=== PATIENT | male | born 1960 ===

== ENCOUNTER 2021-08-30 22:51 | Emergency (ER) | payer SELFPAY ==
[~2021-08-30] VITALS: Ht 178 cm; Wt 81.6 kg
[2021-08-30 22:53] VITALS: BP 0/0
[2021-08-30] MEDS ORDERED: SODIUM BICARB 8.4% 50 MEQ/50 ML (ABBOTT) SYR INJ ONE (22:53)
[2021-08-30] MEDS ORDERED: EPINEPHrine 0.1 MG/ML 10 ML (HOSPIRA) SYR IJ ONE (22:53)
[2021-08-30] MEDS ORDERED: ATROPINE INJECTION 1 MG/10 ML SYR (ABBOTT) INJ ONE (22:53)
[2021-08-30 23:43] LABS: AMPHETAMINE SCREEN, URINE NEGATIVE (NEGATIVE); BARBITURATE SCREEN URINE NEGATIVE (NEGATIVE); BENZODIAZEPINES SCREEN URINE NEGATIVE (NEGATIVE); CANNABINOID SCREEN, URINE NEGATIVE (NEGATIVE); COCAINE SCREEN URINE NEGATIVE (NEGATIVE); METHADONE STAT NEGATIVE (NEGATIVE); METHAMPHETAMINE SCREEN URINE S POSITIVE (NEGATIVE); OPIATE SCREEN URINE NEGATIVE (NEGATIVE); OXYCODONE STAT NEGATIVE (NEGATIVE); PROPOXYPHENE STAT NEGATIVE (NEGATIVE); TRICYCLIC ANTIDEPRESSANTS SCRE NEGATIVE (NEGATIVE)
--- NOTE | 2021-09-03 04:31 | ED CPR ---
HPI-CPR General Chief Complaint: Code Blue Stated Complaint: CODE BLUE Nursing Triage Note: UNRESPONSIVE MALE BROUGHT IN BY [facility] EMS CPR IN PROGRESS. ORALL INTUBATED 7.5, I/O IN PLACE. PT BECAME UNRESPONSIVE APPROX. 2212 EMS CALLED NO CPR BEGAN UNTIL APPROX. 2224. INITIAL RHYTHM PEA/ASYSTOLE. Source of Information: EMS, Other (LATER INFORMATION GIVEN BY GIRLFRIEND OF 6 MONTHS) History of Present Illness Date Seen by Provider: Aug 30, 2021 Time Seen by Provider: 22:53 Initial Comments PT ARRIVES VIA [facility] PT AND GIRLFRIEND HAVE "BEEN OVER HERE SHOPPING ALL DAY"--PT LIVES IN [place], [place] GIRLFRIEND STATES THEY STOPPED AT A [employer]VENIENCE STORE, SHE WENT IN, AND WHEN SHE CAME OUT, HE WAS SITTING IN VEHICLE AND C/O CHEST PAIN, WAS VERY DIAPHORETIC AND GASPING FOR AIR, AND THEN COLLAPSED AND 911 WAS CALLED THERE WAS NO BYSTANDER CPR. 911 WAS CALLED AT 2212 [facility] DEPUTY ARRIVED APPROXIMATELY 10-12 MINUTES AFTER 911 CALL AND CPR WAS INITIATED AT THAT TIME--APPROXIMATELY 5, PT WAS PULSELESS AND APENIC. PT WAS INTUBATED WITH 7.0 ET TUBE I/O ACCESS IN LEFT LOWER LEG EMS GAVE EPINEPHRINE X 4, AND BICARB X 1 MECHANICAL COMPRESSION DEVICE HAS BEEN PLACED BY EMS AND IS IS ATTACHED TO PATIENT AND WORKING PROPERLY EMS REPORT THAT PT HAS BEEN PULSELESS AND APNEIC AND IN ASYSTOLE THE ENTIRE TIME. GIRLFRIEND LATER REPORTS THAT PT NEVER WENT TO ANY DOCTOR SHE STATES HE HAS BEEN COMPLAINING OF CHEST PAIN AND SHORTNESS OF BREATH FOR THE LAST 3 WEEK SHE ALSO STATES THAT HE IS A HEAVY SMOKER, DRINKS HEAVILY AND USES METH AND OTHER DRUGS ON DAILY BASIS. Allergies and Home Medications Allergies Coded Allergies: No Known Drug Allergies (Unverified , 08/31/21) Patient Home Medication List Home Medication List Reviewed: No Review of Systems Review of Systems Constitutional: other (UNRESPONSIVE) Past [id number] Hx Patient Social History Tobacco Use?: Yes Tobacco type used: Cigarettes Substance use?: Yes Substance type: Methamphetamine, Marijuana Substance frequency: Daily Alcohol Use?: Yes Alcohol Frequency: Daily Physical Exam Vital Signs Vital Signs - First Documented 08/30/21 22:53 Temp 35.9 Pulse 0 Resp 0 B/P (MAP) 0/0 (0) Pulse Ox 0 O2 Delivery Ambu Bag Capillary Refill : NONE Height, Weight, BMI Height: '" Weight: lbs. oz. kg; 25.00 BMI Method: General Appearance: Severe Distress, Other (CPR IN PROGRESS, WITH COMPRESSIONS BEING DONE WITH A MECHANICAL DEVICE, AND PT IS BEING BAGGED VIA ET TUBE. PT IS UNRSPONSIVE, CYANOTIC, PULSELESS AND APNEIC. PT NOTED TO HAVE BRASS KNUCKLES WITH HIM. ) Respiratory: Other (APNEIC, EQUAL CHEST RISE/EQUAL BREATH SOUNDS WITH BAGGING. ) Cardiovascular: Other (PULSELESS) Skin: Cyanosis, Damp Procedures/Interventions Tube Size: 7.50 Progress/Results/Core Measures Results/Orders Lab Results Laboratory Tests Test 08/30/21 23:25 Range/Units Urine Opiates Screen NEGATIVE NEGATIVE Urine Oxycodone Screen NEGATIVE NEGATIVE Urine Methadone Screen NEGATIVE NEGATIVE Urine Propoxyphene Screen NEGATIVE NEGATIVE Urine Barbiturates Screen NEGATIVE NEGATIVE Ur Tricyclic Antidepressants Screen NEGATIVE NEGATIVE Urine Phencyclidine Screen NEGATIVE NEGATIVE Urine Amphetamines Screen NEGATIVE NEGATIVE Urine Methamphetamines Screen POSITIVE H NEGATIVE Urine Benzodiazepines Screen NEGATIVE NEGATIVE Urine Cocaine Screen NEGATIVE NEGATIVE Urine Cannabinoids Screen NEGATIVE NEGATIVE My Orders Orders - CASA SINGH DO Drug Screen Stat (Urine) (08/30/21 23:14) Atropine Inj 1 Mg Syringe (Atropine Inj (08/30/21 22:53) Epinephrine Emergency Syringe (Epinephr (08/30/21 22:53) Sodium Bicarbonate 8.4% Syr (Sodium Bica (08/30/21 22:53) Vital Signs/I&O 08/30/21 22:53 Temp 35.9 Pulse 0 Resp 0 B/P (MAP) 0/0 (0) Pulse Ox 0 O2 Delivery Ambu Bag Blood Pressure Mean: 0 Critical Care Note Critical Care Start Time: 22:53 Stop Time: 23:04 Date of : Aug 30, 2021 Time of : 23:04 Progress SEE NURSING NOTES FOR DETAILS DOWN TIME HAS BEEN APPROXIMATELY AN HOUR AND NO BYSTANDER CPR FOR AT LEAST THE FIRST 10 MINUTES PT REMAINED PULSELESS AND APENIC THE ENTIRE TIME PT WAS NOTED TO BE IN PEA ON ARRIVAL HERE, BUT DID NOT RESPOND TO ADDITIONAL DOSE OF EPINEPHRINE, BICARB AND ATROPINE COD WAS CALLED AT 2304 Departure Communication (Admissions) 2313--SPOKE WITH DR. STEIN, SKIRT TRIMMER, SHE ADVISES TO DO URINE DRUG SCREEN AND CALL HIM BACK [phone]--CALLED DR. STEIN BACK WITH UDS RESULTS. HE ADVISES TO RELEASE BODY TO HOME AND HE WILL SIGN CERTIFICATE. Impression Primary Impression: Cardiopulmonary arrest Additional Impression: Methamphetamine use Disposition: 20 Condition: Departure-Patient Inst. Referrals: UNKNOWN (PCP) Primary Care Physician CASA SINGH DO Sep 03, 2021 04:31
== END 2021-08-31 01:28 | disposition expired ==
LOC: ER 22:52
DX: I46.9 Cardiac arrest, cause unspecified (principal); F15.90 Other stimulant use, unspecified, uncomplicated; Z72.0 Tobacco use
CPT/HCPCS: 36680; 80306